=== PATIENT | female | born 1985 | race Caucasian/White ===

== ENCOUNTER 2019-10-23 15:08 | Day surgery (SDC) | payer MEDICAID, SELFPAY ==
[2019-10-23] MEDS ORDERED: hydrALAZINE 20 MG/ML VIAL SLOW IVP PRN (15:12)
--- NOTE | 2019-10-23 15:24 | PDOC.FPROB ---
"FMR OB H&P: HPI - History of Present Illness Chief Complaint: Elevated BP in clinic Indentification: 34yo History of Present Illness: Yadira went to clinic today for mBPP and NST. Her BP in clinic was 155/86, 144/ 79, then 149/92 all 15 minutes apart. She had a reactive NST and the clinic sent her to the hospital for further evaluation. She denies scotoma, headache, swelling, RUQ or epigastric abdominal pain, contractions, LOF, vaginal bleeding, decreased movement, travel, contact with COVID positive persons, cough, shortness of breath, or fever. Primary Care Physician: KARSTEN Lutz FMR OB H&P: Current - Care : 4 Para: 2011 Gestational age: 36.4 Due date: 11/16/2019 Dating Criteria: LMP/1T sono Course/Complications: AMA, obesity, chronic HTN - OB Labs Blood type: O RH: positive Antibody Screen: negative HIV: negative RPR: negative HepBsAg: negative Rubella: immune - Anatomy Survey Anatomy survey: Normal. Anterior placenta FMR OB H&P: History - Past Medical History PMH: Chronic hypertension - OB History OB History: 2012: Term @ 37wks, complicated by pre-eclampsia with severe features. 4th degree laceration. 2017: Pre-term @ 36.0 wks, induced for pre-eclampsia with severe features. 2nd degree laceration. - SEXUAL ASSAULT COUNSELOR History SEXUAL ASSAULT COUNSELOR History: Denies - Surgical History Sx History: Denies - Social History Social History: Denies alcohol, tobacco, or illicit drug use. FMR OB H&P: Medications - Current Home Medications: Medication Instructions Recorded Confirmed Type Aspirin [Ecotrin Low Strength] 81 mg PO DAILY 11/15/16 10/23/19 History Vit,Calc76/Iron/Folic 1 tablet PO DAILY #30 tablet 11/30/16 10/23/19 Rx [Prenatabs Rx Tablet] Allergies/Adverse Reactions: Allergies Allergy/AdvReac Type Severity Reaction Status Date / Time No Known Allergies Allergy Verified 10/23/19 15:50 FMR OB H&P: ROS - Review of Systems General: denies: fever/chills, weight/appetite/sleep changes, night sweats, fatigue Eyes: denies: eye pain, vision changes, double vision, scotomas ENT: denies: nasal congestion, rhinorrhea, sore throat Cardiovascular: denies: chest pain, palpitation, edema Respiratory: denies: cough, congestion, shortness of breath Gastrointestinal: denies: abdominal pain, cramping, nausea, vomiting, diarrhea, constipation Genitourinary (Female): denies: dysuria, hematuria, polyuria, vaginal discharge , vaginal pain, vaginal bleeding, contractions, vaginal pressure Musculoskeletal: denies: pain, stiffness, tenderness Neurologic: denies: numbness, syncope, seizures, weakness Integumentary: denies: itching, rash, lesions Psychological: denies: depression, anxiety FMR OB H&P: Vital Signs - Maternal Vital signs: BP 141/80 | Pulse 83 | O2 99% on room air - Heart Tones Baseline: 140 Variability: moderate Acceleration: present Deceleration: absent Category: category 1 FMR OB H&P: Physical Exam - Physical Exam General: NAD, awake, alert and oriented HEENT: normocephalic and atraumatic, PERRLA, EOMI, MMM, conjunctiva clear, grossly normal vision, grossly normal hearing Neck: supple, trachea midline Breast: symmetric Heart: RRR, normal S1/S2, no murmurs/rubs/gallops General: CTAB, no respiratory distress, good air movement, no rales/rhonchi, no wheezing Abdomen: soft, gravid, non-tender Musculoskeletal: normal gait and station, pulses present Skin: no rash, good tugor Lymphatic: no unusual bruising or bleeding, no purpura, no petechia Psychiatric: intact recent and remote memory, good judgement and insight, normal mood and affect FMR OB H&P: A/P - Problem List (1) Chronic hypertension Status: Acute Code(s): I10 - ESSENTIAL (PRIMARY) HYPERTENSION (2) History of pre-eclampsia in prior , currently Status: Acute Code(s): O09.299 - SUPRVSN OF PREG W POOR REPRODCTV OR OBSTET HISTORY, UNSP TRI (3) Advanced maternal age (AMA) in Status: Acute Code(s): [id number] - Disposition: 1. chronic hypertension, elevated BP in 3T - Preeclampsia labs ordered - Urine protein, creatinine, CBC, CMP - BPP ordered - Will monitor on monitoring for at least 20 minutes 2. Elevated temp - Initial screen showed 100.6F, repeat once on L&D showed 99.1F. - Will monitor temp hourly and consider COVID testing if febrile. - Urinalysis ordered. 3. sIUP - w/ history of preeclampsia with severe features in 2 prior pregnancies. - 36.4 weeks today. CHICO 11/16/2019. Discussion: Date/Time: 10/23/19 1519 UPDATE: - BPP 8/8 - Blood pressures all normal, except for first pressure of 141. No severe range pressures. - CBC, CMP, and urinalysis within normal limits. Urine culture sent. Will follow up. - Return precautions given. - Follow up in clinic next week. Patient is stable and will be discharged home with follow up instructions for clinic. This H&P was discussed with Dr. Whitfield and Dr. Castle who agree with the above documentation and plan. Addendum - Attending - Attending Attestation Date/Time: 10/23/192011 I personally evaluated the patient and discussed the management with Dr. Gaston. I agree with the History, Examination, Assessment and Plan documented above."
[2019-10-23 15:57] LABS: #Lymphocytes 1.5 thou/uL (1.20-3.40); #Monocytes 0.4 thou/uL (0.11-0.59); #Neutrophils 7.6 thou/uL (1.40-6.50); %Basophils 0.3 % (0.0-1.0); %Eosinophils 0.4 % (0.0-10.0); %Lymphocytes 15.3 % (21.0-51.0); %Monocytes 4.2 % (0.0-10.0); %Neutrophils 79.9 % (42.0-75.0); Hemoglobin 10.6 g/dL (12.0-16.0); Mean Corpuscular Hemoglobin 33.9 pg (27.0-31.0); Mean Corpuscular Volume 96.9 fL (78.0-98.0); Mean Platelet Volume 10.1 fL (7.4-10.4); Platelet Count 181 thou/uL (130-400); RBC Distribution Width 11.8 % (11.5-14.5); Red Blood Cell (RBC) Count 3.11 mill/uL (4.20-5.40); White Blood Cell (WBC) Count 9.5 thou/uL (4.8-10.8)
[2019-10-23 16:14] VITALS: BMI 29.6
[2019-10-23 16:17] LABS: ALT (SGPT) 8 U/L (8-55); AST (SGOT) 17 U/L (5-34); Albumin 3.5 g/dL (3.5-5.0); Alkaline Phosphatase 267 U/L (40-110); Anion Gap 15 mmol/L (10-20); BUN (Urea Nitrogen) 7 mg/dL (7.0-18.7); Bilirubin, Total 0.3 mg/dL (0.2-1.2); Calc. Creatinine Clearance 172 mL/min (70-130); Calcium 8.9 mg/dL (7.8-10.44); Carbon Dioxide 19 mmol/L (22-29); Chloride 109 mmol/L (98-107); Estimated GFR-MDRD Greater than 90; Globulin 3.1 g/dL (2.4-3.5); Glucose 83 mg/dL (70-105); Potassium 3.9 mmol/L (3.5-5.1); Protein, Total 6.6 g/dL (6.0-8.3); Sodium 139 mmol/L (136-145)
[2019-10-23 16:41] LABS: Bilirubin Negative (Negative); Blood, Urine Negative (Negative); Clarity Clear (Clear); Glucose, Urine (Dipstick) Normal (Negative); Leukocyte 250 Leu/uL (Negative); Nitrite Negative (Negative); Protein, Urine (Dipstick) Negative (Neg-Trace); RBC/HPF 0-3 HPF (0-3); Urobilinogen Normal mg/dL (Less than 2)
[2019-10-23 16:42] LABS: Squamous Epithelial 0-3 HPF (0-3)
[2019-10-23 16:43] LABS: Bacteria/HPF Rare-Few HPF (None Seen)
[2019-10-23 16:44] LABS: Urine Culture Reflex Yes Yes
[2019-10-23 16:58] LABS: Creatinine, Urine 23.71 mg/dL (47-110); Protein, Urine Random Quant Less than 10 mg/dL (1-14)
--- NOTE | 2019-10-23 18:21 | ULT ---
ULTRASOUND BIOPHYSICAL PROFILE: 10/23/19 HISTORY: 34-year-old female. High risk (advanced maternal age). FINDINGS: breathin tone: 2 movement: 2 Amniotic fluid volume: 2 Placenta: Anterior. Grade III. No placenta previa. EZEQUIEL: 10.5 cm. lie: Cephalic. heart rate: 133 bpm. IMPRESSION: Normal biophysical profile score of 8/8, excluding the non-stress test. desiree stevenson POS: JIN
== END 2019-10-23 17:35 | disposition home or self-care (01) ==
LOC: L&D/OP 15:08
PROVIDERS: ATTEND Obstetrics & Gynecology
DX: O10.013 Pre-existing essential hypertension complicating pregnancy, third trimester (principal); O09.523 Supervision of elderly multigravida, third trimester; O09.293 Supervision of pregnancy with other poor reproductive or obstetric history, third trimester; Z3A.36 36 weeks gestation of pregnancy; Z79.82 Long term (current) use of aspirin
CPT/HCPCS: 76819; 80053; 81001; 82570; 84156; 85025; 87086

== ENCOUNTER 2019-11-02 18:00 | Inpatient (IN) | payer OTHER, SELFPAY ==
[~2019-11-02 18:00] MED LIST: Lidocaine 2% MPF 10 ML AMP (For Epidural Use) ONE
[2019-11-02] MEDS ORDERED: Ondansetron PF 4 MG/2 ML Vial IVP PRN (19:47)
[2019-11-02] MEDS ORDERED: Butorphanol Tartrate 1 MG/ML VIAL SLOW IVP PRN (19:47)
[2019-11-02] MEDS ORDERED: hydrALAZINE 20 MG/ML VIAL SLOW IVP PRN (19:47)
[2019-11-02] MEDS ORDERED: Promethazine HCl 25 MG/ML VIAL IM PRN (19:47)
[2019-11-02] MEDS ORDERED: NS / Oxytocin 40 units/1000ml 1,000 ML IV PRN (19:47)
[2019-11-02] MEDS ORDERED: Lidocaine 1% (PF) 30 ML VIAL SC PRN (19:47)
[2019-11-02 19:50] VITALS: BMI 28.3
[2019-11-02] MEDS: Lactated Ringer's 1,000 ML IV SCH (19:50)
[2019-11-02] MEDS ORDERED: Misoprostol 200 MCG TAB PR PRN (20:08)
[2019-11-02] MEDS ORDERED: Carboprost 250 MCG/ML AMP IM PRN (20:08)
[2019-11-02] MEDS ORDERED: Diphenoxylate HCl/Atropine Tablet PO PRN (20:08)
[2019-11-02] MEDS ORDERED: NS w/ Oxytocin 10 units 500 ML IV SCH (20:15)
--- NOTE | 2019-11-02 20:22 | PDOC.FPROB ---
FMR OB H&P: HPI - History of Present Illness Chief Complaint: ANICETO IOL for cHTN in Indentification: @ 38 WGA by LMP c/w 9.4 wk sono History of Present Illness: 34YO @ 38 WGA who presented to L&D for a ANICETO medically indicared IOL for cHTN in . Reports regular movement. Denies any contraction pain. Denies any abnormal d/c, VB, or LOF. No headache, vision changes, SOB, chest pain, RUQ pain or LE edema. Reports her BPs at home have been in the 130s systolic regularly. Taking ASA, PNVs & iron as instructed. Primary Care Physician: KARSTEN Lutz FMR OB H&P: Current - Care : 4 Para: 1112 Gestational age: 38 weeks Due date: 11/16/2019 Dating Criteria: LMP c/w 9.4 week sono Course/Complications: cHTN, AMA, anemia, Hx PIH w/ Mg on 2 prior deliveries, h/o 4th & second degree lacs - OB Labs Blood type: O RH: positive Antibody Screen: negative HIV: negative RPR: negative HepBsAg: negative Rubella: immune Quad screen: unknown Gonorrhea: negative Chlamydia: negative A1c: 5.1 GBS: negative H&H: 10.6/30.2 on 10/23/19 Platelets: 181 on 10/23/19 FMR OB H&P: History - Past Medical History PMH: HTN - OB History OB History: #1: @ 38 WGA w/ severe pre-e requiring Mg on presentation & 4th degree lac #2: SAB @ ~13 WGA #3: @ 36 WGA w/ PIH requiring Mg & 2nd degree lac - MEDICAL LABORATORY MANAGER History MEDICAL LABORATORY MANAGER History: Normal pap w/ cotesting in 2016. No Hx STIs. - Surgical History Sx History: None - Social History Social History: Lives at home with & 2 children. No TAD. - Family History Family History: Mother - HTN FMR OB H&P: Medications - Current Home Medications: Medication Instructions Recorded Confirmed Type Aspirin [Ecotrin Low Strength] 81 mg PO DAILY 11/15/16 11/02/19 History Vit,Calc76/Iron/Folic 1 tablet PO DAILY #30 tablet 11/30/16 11/02/19 Rx [Prenatabs Rx Tablet] Allergies/Adverse Reactions: Allergies Allergy/AdvReac Type Severity Reaction Status Date / Time No Known Allergies Allergy Verified 10/23/19 15:50 FMR OB H&P: ROS - Review of Systems General: denies: fever/chills, fatigue Eyes: denies: vision changes, double vision ENT: denies: nasal congestion, sore throat Cardiovascular: denies: chest pain, edema Respiratory: denies: cough, shortness of breath Gastrointestinal: denies: abdominal pain, nausea, vomiting, diarrhea Genitourinary (Female): reports: vaginal discharge (white d/c). denies: dysuria , hematuria, vaginal bleeding, contractions, vaginal pressure Musculoskeletal: denies: swelling, decrease range of motion Neurologic: denies: headache Integumentary: denies: itching, rash FMR OB H&P: Vital Signs - Maternal Vital signs: Vital Signs - First Documented Temp Pulse Resp BP Pulse Ox 100.0 F H 80 18 140/84 100 11/02/19 19:37 11/02/19 19:37 11/02/19 19:37 11/02/19 19:37 11/02/19 19:37 - Heart Tones Baseline: 140 Variability: moderate Acceleration: present Deceleration: absent Category: category 1 [place] contractions every: 2-5 minutes FMR OB H&P: Physical Exam - Physical Exam General: NAD, awake, alert and oriented HEENT: normocephalic and atraumatic, MMM, no scleral icterus, grossly normal vision, grossly normal hearing Neck: supple, FROM Heart: RRR, normal S1/S2, no murmurs/rubs/gallops, pulses present, no edema General: CTAB, no respiratory distress, good air movement Abdomen: soft, gravid, non-tender, bowel sound present Musculoskeletal: normal gait and station, FROM in all four extremities Neurological: cranial nerves II through XII intact, sensation to pain,touch and proprioception grossly normal, no focal deficit Skin: no rash, good tugor Lymphatic: no unusual bruising or bleeding Psychiatric: intact recent and remote memory, good judgement and insight, normal mood and affect - Pelvic Exam Vulva: normal hair distribution, no lesions, no discharge Deviation from normal: bloody show following cervical check SVE: 50/-1 Eastman score: 6 Membranes: intact Presentation: cephalic FMR OB H&P: A/P - Problem List (1) Anemia affecting in third trimester Current Visit: Yes Status: Acute Code(s): O99.013 - ANEMIA COMPLICATING , THIRD TRIMESTER (2) Advanced maternal age (AMA) in Current Visit: No Status: Acute Code(s): [id number] - (3) Chronic hypertension Current Visit: No Status: Acute Code(s): I10 - ESSENTIAL (PRIMARY) HYPERTENSION (4) History of pre-eclampsia in prior , currently Current Visit: No Status: Acute Code(s): O09.299 - SUPRVSN OF PREG W POOR REPRODCTV OR OBSTET HISTORY, UNSP TRI Disposition: 34YO @ 38 WGA by LMP c/w 9.4 week sono presenting for a medically indicated IOL for cHTN in . sIUP @ 38 WGA for ANICETO IOL: - [place] q2-5 minutes with cat 1 tracing on presentation. Eastman score of 6 based on SVE 2/50/-1 @ ~2000. Will start pitocin & recheck in ~4 hours or sooner if patient reports increased pain/pressure. - GBS negative so no need for intrapartum PPX. - Will call anesthesia is patient decides she wants an epidural. Consult placed. cHTN in : - Patient not requiring medical therapy for BP control this but has had 2 elevated pressures since presentation. Will get baseline CMP & urine protein:Cr ratio today should pressures remain elevated to r/o pre-e. Will start Mg therapy if patient develops severe range features and/or labs are c/w HELLP. - Will continue to monitor BPs closely. Anemia in : - Aware, H/H pending & will resume PNVs PP. AMA: - Patient on ASA QD prior to admission. Hx of pre-e w/ severe features in prior : - Aware, see cHTN plan. Hx 4th degree laceration: - Aware, but pt had a successful w/ second degree lac since. Discussion: Date/Time: 11/02/192021 This H&P was discussed with Dr. Phillips who agrees with the above documentation and plan. Addendum - Attending - Attending Attestation Date/Time: 11/03/19 0005 I personally evaluated the patient and discussed the management with Dr. Farmer. I agree with the History, Examination, Assessment and Plan documented above with any addition or exceptions noted below.
[2019-11-02 20:29] LABS: Hemoglobin 11.4 g/dL (12.0-16.0); Mean Corpuscular HGB CONC 35.2 g/dL (32.0-36.0); Mean Corpuscular Hemoglobin 33.9 pg (27.0-31.0); Mean Corpuscular Volume 96.4 fL (78.0-98.0); Mean Platelet Volume 10.3 fL (7.4-10.4); Platelet Count 179 thou/uL (130-400); RBC Distribution Width 11.9 % (11.5-14.5); Red Blood Cell (RBC) Count 3.36 mill/uL (4.20-5.40); White Blood Cell (WBC) Count 11.5 thou/uL (4.8-10.8)
[2019-11-02 20:39] LABS: ALT (SGPT) 8 U/L (8-55); AST (SGOT) 17 U/L (5-34); Albumin 3.7 g/dL (3.5-5.0); Alkaline Phosphatase 331 U/L (40-110); Anion Gap 16 mmol/L (10-20); BUN (Urea Nitrogen) 14 mg/dL (7.0-18.7); Bilirubin, Total 0.3 mg/dL (0.2-1.2); Calc. Creatinine Clearance 136 mL/min (70-130); Calcium 9.8 mg/dL (7.8-10.44); Carbon Dioxide 20 mmol/L (22-29); Chloride 107 mmol/L (98-107); Estimated GFR-MDRD Greater than 90; Globulin 3.3 g/dL (2.4-3.5); Glucose 75 mg/dL (70-105); Potassium 3.8 mmol/L (3.5-5.1); Sodium 139 mmol/L (136-145)
[2019-11-02 20:57] LABS: Syphilis Antibody Nonreactive (Nonreactive); Syphilis Antibody Index 0.03 S/CO (<1.00 Non-Reactive)
[2019-11-03 00:11] LABS: HBSAg Index 0.17 S/CO (0-0.99); Hep B Surf Ag Non-Reactive S/CO (NonReactive)
--- NOTE | 2019-11-03 00:19 | PDOC.LDPN ---
Labor & Delivery Progress Note - Subjective Subjective: painful contractions - Objective Vital signs reviewed and normal: yes General: NAD, resting, breathing through contractions Dilation: 4 Effacement: 50% Station: -1 FHT: category 1 [place] contractions every: 2-3 minutes Resuscitative measures: maternal IV fluids - Assessment (1) Anemia affecting in third trimester Code(s): O99.013 - ANEMIA COMPLICATING , THIRD TRIMESTER Current Visit: Yes Status: Acute (2) Advanced maternal age (AMA) in Code(s): [id number] - Current Visit: No Status: Acute (3) Chronic hypertension Code(s): I10 - ESSENTIAL (PRIMARY) HYPERTENSION Current Visit: No Status: Acute (4) History of pre-eclampsia in prior , currently Code(s): O09.299 - SUPRVSN OF PREG W POOR REPRODCTV OR OBSTET HISTORY, UNSP TRI Current Visit: No Status: Acute Plan: pitocin for augmentation -: 34YO @ 38 WGA by LMP c/w 9.4 week sono presenting for a medically indicated IOL for cHTN in . sIUP @ 38 WGA for ANICETO IOL: - Steffen q2-3 minutes with cat 1 tracing. Eastman score of 7 based on SVE 4/ 50/-1 @ ~00:08. Will continue pitocin & titrate as tolerated. Will recheck in ~ 4 hours or sooner if patient reports increased pain/pressure. - GBS negative so no need for intrapartum PPX. - Will call anesthesia is patient decides she wants an epidural. Consult placed. cHTN in : - Patient not requiring medical therapy for BP control this but has had 3 elevated pressures since presentation. None in severe range & remains asymptomatic. Baseline CMP & Plts WNLs. Urine protein:Cr ratio still pending. Will start Mg therapy if patient develops severe range features and/or pressures. - Will continue to monitor BPs closely. Anemia in : - Aware, H/H pending & will resume PNVs PP. AMA: - Patient on ASA QD prior to admission. Hx of pre-e w/ severe features in prior : - Aware, see cHTN plan. Hx 4th degree laceration: - Aware, but pt had a successful w/ second degree lac since. Dispo: Recheck in ~4 hours or sooner pending increased pressure.
[2019-11-03] MEDS: Ibuprofen 800 MG TAB PO SCH ×4 (01:28→22:10)
--- NOTE | 2019-11-03 04:17 | PDOC.LDPN ---
Labor & Delivery Progress Note - Subjective Subjective: comfortable - Objective Vital signs reviewed and normal: yes General: NAD, resting, breathing through contractions Dilation: 4 Effacement: 50% Station: -1 FHT: category 1 [place] contractions every: 2-6 minutes Resuscitative measures: maternal IV fluids, maternal position change - Assessment (1) Anemia affecting in third trimester Code(s): O99.013 - ANEMIA COMPLICATING , THIRD TRIMESTER Current Visit: Yes Status: Acute (2) Advanced maternal age (AMA) in Code(s): [id number] - Current Visit: No Status: Acute (3) Chronic hypertension Code(s): I10 - ESSENTIAL (PRIMARY) HYPERTENSION Current Visit: No Status: Acute (4) History of pre-eclampsia in prior , currently Code(s): O09.299 - SUPRVSN OF PREG W POOR REPRODCTV OR OBSTET HISTORY, UNSP TRI Current Visit: No Status: Acute Plan: pitocin for augmentation -: 34YO @ 38 WGA by LMP c/w 9.4 week sono presenting for a medically indicated IOL for cHTN in . sIUP @ 38 WGA for ANICETO IOL: - Steffen q2-5 minutes with cat 1 tracing. SVE unchanged @ 50/-1 @ ~0400. Will continue pitocin & increase as tolerated. Will recheck in ~2 hours or sooner if patient reports increased pain/pressure. - GBS negative so no need for intrapartum PPX. - Patient desires epidural but not right now. Anesthesia consult placed on admission. cHTN in : - Patient not requiring medical therapy for BP control this . Has had 4 elevated pressures since presentation but none in severe range & remains asymptomatic. Baseline LFTs, Cr, Plts & Urine protein:Cr ratio WNLs. Will start Mg therapy if patient develops severe range features and/or pressures. - Will continue to monitor BPs closely. Anemia in : - H/H improved since 10/23/19 labs. Will resume PNVs PP. AMA: - Patient on ASA QD prior to admission. Hx of pre-e w/ severe features in prior : - Aware, see cHTN plan. Hx 4th degree laceration: - Aware, but pt had a successful w/ second degree lac since. Dispo: Recheck in ~2 hours or sooner pending increased pelvic pressure.
--- NOTE | 2019-11-03 08:17 | PDOC.LDPN ---
Labor & Delivery Progress Note - Subjective Subjective: comfortable, painful contractions - Objective Vital signs reviewed and normal: yes General: NAD, resting SVE: 560/-1 FHT: category 1 [place] contractions every: 2-3min AROM: clear fluid Plan: continue plan of care, pitocin for augmentation -: 34YO @ 38.1 WGA by LMP c/w 9.4 week sono presenting for a medically indicated IOL for cHTN in . #sIUP @ 38.1 WGA for ANICETO IOL: - Steffen q2-3 minutes with cat 1 tracing. SVE 560/-1 @ ~0400. Will continue pitocin & increase as tolerated. Will recheck in ~2 hours or sooner if patient reports increased pain/pressure. - GBS negative so no need for intrapartum PPX. - Patient desires epidural but not right now. Anesthesia consult placed on admission. cHTN in : - Patient not requiring medical therapy for BP control this . Has had 5 elevated pressures since presentation, one since last check at ~0600, and none in severe range & remains asymptomatic. Baseline LFTs, Cr, Plts & Urine protein:Cr ratio WNLs. Will start Mg therapy if patient develops severe range features and/or pressures. - Will continue to monitor BPs closely. Anemia in : - H/H improved since 10/23/19 labs. Will resume PNVs PP. AMA: - Patient on ASA QD prior to admission. Hx of pre-e w/ severe features in prior : - Aware, see cHTN plan. Hx 4th degree laceration: - Aware, but pt had a successful w/ second degree lac during last delivery Dispo: Recheck in ~2 hours or sooner pending increased pelvic pressure. Addendum - Attending - Attending Attestation Date/Time: 11/03/19 1001 I personally evaluated the patient and discussed the management with Dr. Shankar and Michelet. I agree with the History, Examination, Assessment and Plan documented above with any addition or exceptions noted below.
[2019-11-03] MEDS ORDERED: NS / Oxytocin 40 units/1000ml 1,000 ML ONE (08:32)
[2019-11-03] MEDS ORDERED: Lidocaine 1% (PF) 30 ML VIAL ONE (08:32)
[2019-11-03] MEDS: Lactated Ringer's 1,000 ML IV SCH ×2 (09:03→14:25)
[2019-11-03] MEDS ORDERED: Fentanyl 4 mcg/Bup 0.1% Cadd 100 ML ONE (09:09)
[2019-11-03] MEDS ORDERED: Lactated Ringer's 500 ML IV PRN (09:40)
[2019-11-03] MEDS ORDERED: diphenhydrAMINE 50 MG/ML VIAL IVP PRN (09:40)
[2019-11-03] MEDS ORDERED: EPHEDRINE 25 MG/5 ML SYRINGE SLOW IVP PRN (09:40)
[2019-11-03] MEDS ORDERED: Naloxone HCl 0.4 mg/ml Vial IVP PRN ×2 (09:40)
[2019-11-03] MEDS ORDERED: Ondansetron PF 4 MG/2 ML Vial IVP PRN (09:40)
[2019-11-03] MEDS ORDERED: Promethazine HCl 25 MG/ML VIAL IM PRN (09:40)
[2019-11-03] MEDS ORDERED: Acetaminophen 325 MG TAB PO PRN (09:40)
[2019-11-03] MEDS ORDERED: Fentanyl 4 mcg/Bupivacaine 0.1% Cassette 100 ML EPIDURAL SCH (09:45)
[2019-11-03] MEDS ORDERED: Communication Order-Pharmacy FS SCH (09:45)
--- NOTE | 2019-11-03 10:08 | PDOC.LDPN ---
Labor & Delivery Progress Note - Subjective Subjective: comfortable - Objective Vital signs reviewed and normal: yes General: NAD, resting Uterine fundus: non tender SVE: 8/+1 FHT: category 2, early decelerations, variability present [place] contractions every: 2-3 Plan: continue plan of care, pitocin for augmentation -: 34YO @ 38.1 WGA by LMP c/w 9.4 week sono presenting for a medically indicated IOL for cHTN in . #sIUP @ 38.1 WGA for ANICETO IOL: - Steffen q2-3 minutes with cat 2 tracing, FHT just started to show a few early decels. SVE /+1 @ ~1000. Will continue to monitor FHT closely and can consider turning down the pitocin if decels continue. Will recheck in ~1 hour or sooner if patient reports increased pain/pressure. - GBS negative so no need for intrapartum PPX. - Patient had epidural, gilliland in place cHTN in : - Patient not requiring medical therapy for BP control this . Has had 6 elevated pressures since presentation, one since last check at ~0800, and none in severe range & remains asymptomatic. Baseline LFTs, Cr, Plts & Urine protein:Cr ratio WNLs. Will start Mg therapy if patient develops severe range features and/or pressures. - Will continue to monitor BPs closely. Anemia in : - H/H improved since 10/23/19 labs. Will resume PNVs PP. AMA: - Patient on ASA QD prior to admission. Hx of pre-e w/ severe features in prior : - Aware, see cHTN plan. Hx 4th degree laceration: - Aware, but pt had a successful w/ second degree lac during last delivery Dispo: Recheck in ~1 hour or sooner pending increased pelvic pressure. Continue to monitor FHT closely and can consider decreasing pitocin/maternal position changes if decels continue. Addendum - Attending - Attending Attestation Date/Time: 11/04/19 7146 I personally evaluated the patient and discussed the management with the team. I agree with the History, Examination, Assessment and Plan documented above with any addition or exceptions noted below. Please note early decelerations are category 1.
[2019-11-03] MEDS ORDERED: CEFAZOLIN 2 GM in Premix Bag 1 BAG IVPB SCH (11:30)
--- NOTE | 2019-11-03 11:44 | PRG ---
DATE OF SERVICE: Currently the time is roughly 11:08. Time of first evaluation was roughly 11 o'clock. In brief, I am the LAB CLERK organ tuner electronic today and I was asked by Dr. Shankar/Dr. Jones to evaluate the patient, who is now for perineal repair. This is a patient, who had a fourth-degree laceration at another location with her first child, and then apparently, by history, a second-degree with her subsequent delivery. The patient just delivered and I was asked to evaluate the perineal body. I performed a rectal examination after discussing to the patient the reason for the exam (make sure that there was no rectal mucosal involvement). This was done with sterile gloves. With one finger into the anus, I did not find any rectal involvement, but there is an absence of the perineal body. This may be from a faulty previous repair. We did notice that the superficial transverse perineal muscles were very atrophic and splayed apart, so I was able to grab both angles with Allis clamps. These were identified for closure in the midline. I do not believe that this happened at this delivery because it was not in the same tear plane as the current second-degree. This may be a leftover injury from the previous defect. Nonetheless, this was being done to try to repair the perineal body, which is kind of non-existent at this time, but not from this current laceration. Once the superficial transverse perineal muscles will be brought together in the midline, then the small second-degree can be repaired in the usual manner. It is important to note that there were also some external hemorrhoids visible, but these were not violated/involved. Once again, I do not see any evidence of a fourth-degree laceration, but there is evidence of a very atrophic perineal body from what looks like a previous third-degree, but I do not feel that came from this delivery. I did discuss with the patient and her partner the need for repair. I did recommend Ancef just due to the rectal instrumentation and stool at the perineal location. Please see full delivery note by Dr. Jones and team, who carried out the repair procedure. Job ID: [id number]
--- NOTE | 2019-11-03 11:44 | PDOC.OPDEL ---
OB Operative/Delivery Note - Additional Findings/Plan Compilations/Other Findings: Vaginal Delivery Dictation Guideline Delivering Physician: Dr. Gretchen Lutz, Dr. Yuni Tafoya Attending: Dr. Quique Jones Procedure: Spontaneous Vaginal Delivery Anesthesia: epidural EBL: 150 ml Pre-op Diagnosis: 1. Term intrauterine in labor 2. Medical induction for cHTN 3. Advanced maternal age 4. Anemia of 5. Prior 3rd degree perineal laceration during first delivery Post-op Diagnosis: 1. Term intrauterine , delivered 2-5. same as above 6. Hypoplastic perineal body, repaired 7. External hemorrhoids Indications: A 34y/o female presents to L&D for induction due to cHTN Delivery Note: This is 34yo F @ 38.1wks who delivered a viable F at 1052 on 11/02. Following an uneventful intrapartum course, a vigorous female was delivered over the perineum, with evidence of prior 3rd degree perineal laceration and hypoplastic perineal body, in the occipitoanterior position. Anterior Shoulder and then remainder of the body delivered. Nuchal cord x1. The head was held down and mouth and nares were bulb suctioned. Cord clamped after delayed cord clamping and cut and cord blood collected. Placenta delivered intact in the Baker presentation with a 3 vessel cord noted. Fundal massage was performed and the fundus was firm. The cervix and vagina were inspected and 2nd degree laceration and hypoplastic perineal body noted. The 2nd degree laceration was repaired with 3-0 chromic in the usual fashion, and the superficial transverse perineal muscles were brought together in the midline with 3-0 chromic to try to repair the perineal body. The repairs were made with good approximation and hemostasis. 2g Ancef were ordered for the patient due to the prior hx of 3rd degree perineal laceration and hypoplastic perineal body. Infant went to nursery in good condition for routine care. Apgars were 8 /9 at 1 & 5 minutes, respectively. Patient tolerated delivery well and went to after routine recovery/care. Addendum - Attending - Attending Attestation Date/Time: 11/04/19 1430 I was present for the entire delivery and repair. History of 4th degree with first delivery, apparently uncomplicated second delivery with no remarkable tears. Upon pp examination I felt there was possibly an unrepaired prior OASIS vs breakdown subsequent to a repair and asked Dr. Hayden for his input. Please see his note, which we appreciate. The repair was conducted as per his recommendation. Counts correct. Mom and baby to pp. Will need follow up as an outpatient.
[2019-11-03] MEDS ORDERED: Lanolin Ointment 7 GM TUBE TOP PRN (13:33)
[2019-11-03] MEDS ORDERED: Bisacodyl 10 MG SUPP PR PRN (13:33)
[2019-11-03] MEDS ORDERED: NS / Oxytocin 40 units/1000ml 1,000 ML IV SCH (13:33)
[2019-11-03] MEDS ORDERED: Milk Of Magnesia 30 ML UDCUP PO PRN (13:33)
[2019-11-03] MEDS ORDERED: hydrALAZINE 20 MG/ML VIAL SLOW IVP PRN (13:33)
[2019-11-03] MEDS: Ferrous Sulfate 325 MG TAB PO SCH (14:42)
[2019-11-03] MEDS: Docusate Calcium (SURFAK) 240 MG CAP PO SCH (22:10)
[2019-11-04] MEDS: Ibuprofen 800 MG TAB PO SCH (05:16)
--- NOTE | 2019-11-04 05:26 | PDOC.OBPPN ---
FMR OB PN: Subj - Interval History Hospital Day: 3 Day: 1 Chief Complaint: none, patient doing well Indentification: 34F delivered viable F @ 38.1wga via @ 1052 on 11/02 Interval History: Minimal pain, mild lochia, ambulating, passing flatus, voiding , no BM yet FMR OB PN: Obj - Maternal Vital signs: BP: [133-157/59-84] HR: [61-70] RR: [16-18] Tmax: [98.6F] Pox: [100]% on [RA] Wt: [72.575kg] - Urine output I&O: 11/02/19 11/03/19 11/04/19 06:59 06:59 06:59 Output Total 173 Balance -173 - Lochia Lochia: mild - Pain Management Intervention: oral medication FMR OB PN: Exam - Physical Exam General: NAD, awake, alert and oriented HEENT: normocephalic and atraumatic, MMM Neck: supple, FROM Chest: non-tender to palpation, no lesions Heart: RRR, normal S1/S2 General: CTAB, no respiratory distress Abdomen: soft, bowel sound present, other (mildly ttp, fundus below umbilicus) Musculoskeletal: pulses present, FROM in all four extremities Neurological: no tremor, no focal deficit Skin: no rash, good tugor : no edema, appropriately tender Lymphatic: no unusual bruising or bleeding, no purpura Psychiatric: intact recent and remote memory, good judgement and insight FMR OB PN: A/P - Problem List (1) care and examination Current Visit: Yes Status: Acute Code(s): Z39.2 - ENCOUNTER FOR ROUTINE FOLLOW-UP (2) Anemia affecting in third trimester Current Visit: Yes Status: Acute Code(s): O99.013 - ANEMIA COMPLICATING , THIRD TRIMESTER (3) Advanced maternal age (AMA) in Current Visit: No Status: Chronic Code(s): LOH1256 - (4) Chronic hypertension Current Visit: No Status: Chronic Code(s): I10 - ESSENTIAL (PRIMARY) HYPERTENSION Disposition: 34F delivered viable F @ 38.1wga via @ 1052 on 11/02 #Post- day 1 -pain minimal, abdomen appropriately ttp -lochia mild -passing flatus, no BM yet; miralax added to regimen -ambulating well -tolerating PO -parents eager to go home -f/u: with PNC in 2 weeks; baby to f/u with [facility] #cHTN -has had 3 elevated BP since delivery, none in the severe range -highest BP 157/84 -preliminary pre-e labs negative -will continue to monitor #Anemia of -H/H 11.4/32.4 before delivery -EBL 150ml -can continue to monitor after #AMA -aware Diet: Regular DVTppx: none, low risk Dispo: possibly d/c today pending normal bili for baby PCP: [email or web address] Discussion: Date/Time: 11/04/19 7170 This H&P was discussed with [Vonnie] and [Robert] who agree with the above documentation and plan. Signature: Yuni Tafoya MD PGY-1 Addendum - Attending - Attending Attestation Date/Time: 11/04/19 3515 I personally evaluated the patient and discussed the management with Dr. Tafoya and team. I agree with the History, Examination, Assessment and Plan documented above with any addition or exceptions noted below.
[2019-11-04 06:14] LABS: Hemoglobin 10.6 g/dL (12.0-16.0); Mean Corpuscular HGB CONC 34.4 g/dL (32.0-36.0); Mean Corpuscular Hemoglobin 33.6 pg (27.0-31.0); Mean Corpuscular Volume 97.7 fL (78.0-98.0); Platelet Count 157 thou/uL (130-400); RBC Distribution Width 12.3 % (11.5-14.5); Red Blood Cell (RBC) Count 3.17 mill/uL (4.20-5.40); White Blood Cell (WBC) Count 8.4 thou/uL (4.8-10.8)
[2019-11-04 07:52] VITALS: TEMP 97.9
[2019-11-04] MEDS: Ferrous Sulfate 325 MG TAB PO SCH (07:57)
[2019-11-04] MEDS ORDERED: Polyethylene Glycol 3350 17 GM Packet PO SCH (09:00)
[2019-11-04] MEDS ORDERED: Adacel (T-DAP) 0.5 ML SYRINGE IM ONE (09:00)
[2019-11-04] MEDS ORDERED: Prenatal Vitamin 1 TAB PO SCH (09:00)
[2019-11-04] MEDS: Docusate Calcium (SURFAK) 240 MG CAP PO SCH (09:21)
[2019-11-04 11:38] VITALS: BP 149/74
== END 2019-11-04 14:55 | disposition home or self-care (01) | DRG 806 ==
LOC: L&D 18:14 → 3SW 11-03 13:48
PROVIDERS: ADMIT Family Medicine; ATTEND Family Medicine
PROC: 10E0XZZ Delivery of Products of Conception, External Approach (ICD-10-PCS; principal; 2019-11-03)
PROC: 0KQM0ZZ Repair Perineum Muscle, Open Approach (ICD-10-PCS; 2019-11-03)
PROC: 3E033VJ Introduction of Other Hormone into Peripheral Vein, Percutaneous Approach (ICD-10-PCS; 2019-11-03)
DX: O10.92 Unspecified pre-existing hypertension complicating childbirth (principal); O22.43 Hemorrhoids in pregnancy, third trimester; Z37.0 Single live birth; Z3A.38 38 weeks gestation of pregnancy; Z79.82 Long term (current) use of aspirin; O99.02 Anemia complicating childbirth; D64.9 Anemia, unspecified; O69.81X0 Labor and delivery complicated by cord around neck, without compression, not applicable or unspecified; O76 Abnormality in fetal heart rate and rhythm complicating labor and delivery; O70.1 Second degree perineal laceration during delivery; N94.89 Other specified conditions associated with female genital organs and menstrual cycle; O75.89 Other specified complications of labor and delivery
CPT/HCPCS: 36415; 51702; 80053; 81003; 82570; 85027; 86780; 86850; 86900; 86901; 87340; J0690; J2001; J2590